=== PATIENT | male | born 1955 | race Caucasian/White ===

== ENCOUNTER → 2020-05-17 | Outpatient (CLI) | payer MEDICARE ==
--- NOTE | 2020-05-17 16:05 | RAD ---
EXAM: Right ribs 4 views. HISTORY: Right posterior lateral rib pain. COMPARISON: None. FINDINGS: No displaced right rib fractures are identified. There are moderate to severe changes of degenerative disc disease within the upper lumbar spine with a mild dextrocurvature. Thoracic degenerative changes also appear moderate diffusely. 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 A calcified granuloma is noted on the right. IMPRESSION: 1. No displaced right rib fractures. Electronically signed by: Jesus Manuel Molina MD (05/17/2020 4:01 PM) [id number]
== END | disposition home or self-care (01) ==
LOC: RAD 09:39
PROVIDERS: ATTEND Family Medicine
DX: R07.81 Pleurodynia (principal); M19.011 Primary osteoarthritis, right shoulder; M51.36 Other intervertebral disc degeneration, lumbar region; M47.814 Spondylosis without myelopathy or radiculopathy, thoracic region; M43.8X6 Other specified deforming dorsopathies, lumbar region; M25.811 Other specified joint disorders, right shoulder
CPT/HCPCS: 71100

== ENCOUNTER → 2020-05-25 | Outpatient (CLI) | payer MEDICARE ==
[~2020-05-25] MED LIST: CONTRAST GIVEN. MC PRN; IOHEXOL 240 MG/ML 50ML VIAL. PO ONE; IOHEXOL 300 MG/ML 100ML VIAL. IV ONE
[2020-05-25 08:05] LABS: CREATININE 1.2 mg/dL (0.7-1.3); GFR 60.6
--- NOTE | 2020-05-25 11:07 | RAD ---
EXAM: CT Abdomen and Pelvis with IV contrast INDICATION: Reason: RUQ PAIN / Spl. Instructions: 78ML OMNI 300 30 ML OMNI 240 / History: TECHNIQUE: Multi-detector row CT images were acquired from the lung bases through the abdomen and pelvis with the use of IV contrast. Sagittal and coronal images were acquired from the transaxial data. All CT scans performed at this facility utilize dose optimization techniques as appropriate to the exam, including the following: Automated exposure control and adjustment of the mA and/or KV according to patient size (this includes techniques or standardized protocols for targeted exams where dose is indication/reason for exam). IV CONTRAST: Administered ORAL CONTRAST: Cholelithiasis. COMPARISON: None FINDINGS: LOWER CHEST: Unremarkable LIVER: Unremarkable BILIARY SYSTEM: Gallbladder contains at least one partially calcified stone, likely secondary near the neck. No gallbladder distention or obvious wall thickening or pericholecystic stranding or fluid. Bile ducts are not dilated. PANCREAS: Unremarkable SPLEEN: Unremarkable ADRENALS: Unremarkable KIDNEYS & URETERS: A 4.2 cm cyst in the midpole left kidney is present and needs no additional imaging follow-up. Kidneys otherwise unremarkable. BLADDER: Unremarkable REPRODUCTIVE ORGANS: Unremarkable GASTROINTESTINAL: The stomach, small bowel, and colon show scattered colonic diverticuli and a tubular filling defect in the small bowel right lower quadrant of uncertain significance (axial image 67 through 70, series 2). The appendix is not seen and may be surgically absent.. MESENTERY/PERITONEUM/RETROPERITONEUM: Unremarkable VASCULAR: Infrarenal abdominal aortic aneurysm measuring 5.1 x 4.4 cm without periaortic soft tissue stranding or fluid is present. 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 Smaller right common iliac artery aneurysm measuring 3.2 x 3.7 cm. LYMPH NODES: No adenopathy OSSEOUS & SOFT TISSUES: Unremarkable IMPRESSION: 1. Cholelithiasis with no CT findings suspicious for acute cholecystitis. Consider correlation with right upper quadrant abdominal ultrasound if clinically warranted. 2. Aneurysms of the infrarenal abdominal aorta, and of the bilateral common iliac arteries, including a 6 cm diameter left common iliac artery aneurysm, not showing evidence of impending leak or rupture currently. Vascular surgical follow-up recommended. 3. Tubular filling defect in the small bowel of uncertain etiology or significance. A fasting or intestinal parasite versus an ingested foreign body or normal intraluminal air narrowed as a result of an intestinal contraction in early progress are all differential considerations. Report telephoned to Dr. Toribio's office with message left regarding the salient findings at 11:03 AM on 05/25/2020 Electronically signed by: Haley Carlos MD (05/25/2020 11:04 AM) [id number]
== END | disposition home or self-care (01) ==
LOC: CT 06:40
PROVIDERS: ATTEND Family Medicine
DX: K80.20 Calculus of gallbladder without cholecystitis without obstruction (principal); N28.1 Cyst of kidney, acquired; K82.8 Other specified diseases of gallbladder; R93.3 Abnormal findings on diagnostic imaging of other parts of digestive tract; I71.4 Abdominal aortic aneurysm, without rupture; I72.9 Aneurysm of unspecified site; I72.3 Aneurysm of iliac artery
CPT/HCPCS: 36415; 74177; 82565; 84520; Q9966; Q9967

== ENCOUNTER → 2020-08-22 | Outpatient (CLI) | payer MEDICARE ==
[~2020-08-22] MED LIST changes: -CONTRAST GIVEN. MC PRN; +CRESTOR5 MG PO; +DILT180C2 PO; +FLUO20CA16 PO; +FLUO20CA20 PO; +GADOTERATE 7.5 MMOL/15ML VIAL. IVP ONE; +HYDR-2761 PO; +HYDR12.575 PO; -IOHEXOL 240 MG/ML 50ML VIAL. PO ONE; -IOHEXOL 300 MG/ML 100ML VIAL. IV ONE; +MELO15TA23 PO; +PANT40TA77 PO; +RIVA20TA2 PO; +TRAM50TA PO; +ZOLP10TA PO; +[UNRECOGNIZED DRUG - CODE] PO
--- NOTE | 2020-08-22 12:13 | KCIC ---
PELVIS WO/W CONTRAST 08/22/2020 9:30 AM INDICATION: Rectal polyp COMPARISON: CT abdomen/pelvis 05/25/2020. TECHNIQUE: Multiplanar, multisequence MR imaging of the pelvis was obtained before and after administration of intravenous contrast. FINDINGS: Evaluation limited by motion. There is an aneurysm of the left common iliac artery measuring 5.2 cm, only partially profiled. There is an aneurysm of the right common iliac artery measuring 2.5 cm mild partially profiled. Greater a 9 is intact. Mesorectal fat appears normal the mesorectal fascia appears intact. There are is no suspicious mass identified within the visualized portions of the rectum. No disruption of the muscularis propria. No suspicious diffusion signal alteration is visualized. Nonenlarged inguinal lymph nodes are present, likely reactive. Urinary bladder is within normal limits. Prostate seminal vesicles are normal. No suspicious osseous abnormality is identified. IMPRESSION: Evaluation is limited by motion artifact. There is no disruption of the muscularis propria the visualized portions of the rectum. No definite solid mass is identified. Correlate with site of rectal polyp and underlying pathology. If there is concern for rectal malignancy, repeat examination could be of benefit given degree of motion. No definite pathologically enlarged mesorectal lymph nodes. Bilateral common iliac artery aneurysms, similar to the prior examination from 05/25/2020. Electronically signed by: Simi Grayson MD (08/22/2020 12:10 PM) [facility]
== END ==
LOC: KCIC MRI 08:54
PROVIDERS: ATTEND Internal Medicine Gastroenterology
DX: K62.1 Rectal polyp (principal); R13.10 Dysphagia, unspecified; I72.3 Aneurysm of iliac artery
CPT/HCPCS: 72197; 82565; A9575